=== PATIENT | female | born 1935 | race Caucasian/White ===

== ENCOUNTER 2017-10-04 18:06 | Emergency (ER) | payer MEDICARE, OTHER, SELFPAY ==
[2017-10-04 18:07] VITALS: BP 152/75; PULSE 91; RESP 16; TEMP 36.9; O2SAT 99; BMI 24.3
--- NOTE | 2017-10-04 18:25 | EKG12_ITS ---
Test Reason : FATIGUE Blood Pressure : / mmHG Vent. Rate : 072 BPM Atrial Rate : 277 BPM P-R Int : 000 ms QRS Dur : 168 ms QT Int : 470 ms P-R-T Axes : 000 -85 085 degrees QTc Int : 514 ms Ventricular-paced rhythm Abnormal ECG Confirmed by MALATHI JACOBO, JOEY ([id number]), slot editor BOBO MORA ([id number] on 10/07/2017 1:20:05 PM Referred By: [place] Confirmed By:JOEY SERVIN MD
--- NOTE | 2017-10-04 18:31 | ED.VISSUMM ---
- ER Visit Summary Date of Service: 10/04/17 Chief Complaint: Fluid retention History of Present Illness: The patient is a 81 F who presents with complaint of feet and ankles being swollen for the past week. She states she normally does get swelling but resolves in the morning after she elevates her feet. This has not been happening in the last week or so. She denies pain. She has a pacemaker that she says is secondary to atrial fibrillation. She believes she had an echocardiogram with her marine equipment research engineer not too long ago, but her marine equipment research engineer at [facility]. She is on Lasix chronically but does not know if this is because of congestive heart failure. Physical Examination: Blood pressure is 152/75, temperature 98.5, heart rate 91, respiratory rate 16, pulse ox 99% on room air. Patient sitting upright in bed no acute distress. She is alert and talkative. Head neck examination unremarkable. Heart is regular rate and rhythm. Lung sounds are clear. Abdomen is soft nontender. Lower external examination was 3+ edema in the right lower extremity, 2+ in the left lower extremity. Strong distal pulses are noted throughout. Test Results: EKG is paced at 72. Two-view chest x-ray shows COPD changes. Stable cardiomegaly is noted. CBC and chemistry studies are normal. Troponin is less than 0.015. BNP is 247. INR is supratherapeutic at 3.7. Venous ultrasound of the right leg is obtained secondary to recent surgery on this leg. There is no evidence of DVT. There is a cystic structure behind the right knee measuring 5 cm in diameter. Emergency Department Course and Treatment: On repeat evaluation patient is resting comfortably. Patient's test results were discussed with her as well as family at bedside. She states that she had been told in the past that she had a Barajas's cyst, but she does not know the size. She may be having more persistent swelling in this leg secondary to enlargement of the cyst. Light compression wrap was placed to the right lower extremity. Patient was advised to hold her Coumadin tonight and contact her doctor's office tomorrow to determine dosing. Treatment Plan: [] Disposition: Discharge Impression: 1. Barajas's cyst right leg 2. Supratherapeutic INR This note was generated with MathZeeation software. It may contain incorrect words, spelling, and punctuation that were not noted in review of the chart prior to signing ED Disposition - Plan for ED Patient: Disposition: Home or Assisted Living Chief Complaint: Fatigue Instructions: ED Cyst Barajas Referrals: Leonardo Wood III, MD [Primary Care Provider] - Additional Instructions: Hold your Warfarin tonight. Call Dr Wood's office tomorrow - your INR tonight is 3.7
[2017-10-04 18:57] LABS: Absolute Lymphocyte Count 1.55 X10^3/ul (0.83-4.51); Basophil% 1.5 % (0-1); Eosinophil# 0.21 X10^3/uL; Eosinophils% 3.2 % (0-5); Hematocrit 40.2 % (37-47); Hemoglobin 13.6 g/dl (12.0-15.0); Lymphocyte # 1.55 X10^3/ul (4.0); Lymphocyte % 23.3 % (19-41); Mean Corp Hgb Conc 33.8 g/gl (32-36); Mean Corpuscular Hgb 31.8 pg (27.0-32.0); Mean Corpuscular Volume 93.9 fL (81-99); Mean Platelet Vol. 9.6 fl (6.2-12.0); Monocyte# 0.77 X10^3/uL; Monocyte% 11.6 % (0-10); Neutrophil # 4.02 X10^3/uL (2.7-7.7); Neutrophil % 60.2 % (47-70); Platelet Count 247 K/mm3 (150-450); RBC Distribution Width CV 13.2 % (11.6-14.6); RBC Distribution Width SD 44.2 fl (35.1-43.9); Red Blood Count 4.28 M/mm3 (4.2-5.4); White Blood Count 6.7 K/mm3 (4.4-11.0)
[2017-10-04 18:59] LABS: POSITIVE COUNT NO; POSITIVE DIFFERENTIAL NO; POSITIVE MORPHOLOGY NO
--- NOTE | 2017-10-04 19:00 | RAD_ITS ---
STUDY: X-RAY CHEST REASON FOR EXAM: Female, 81 years old. Fatigue and fluid retention for several weeks. This has worsened over the past week. TECHNIQUE: PA and lateral views of the chest. COMPARISON: July 29, 2016. FINDINGS: Telemetry wires overlie the chest. There is hyperinflation of the lungs consistent with chronic obstructive lung disease (COPD). There is no new mass or infiltrate. There is no demonstrated pleural abnormality. There is mild cardiac enlargement. Stable cardiac pacemaker. Normal mediastinum and doreen. Normal visualized pulmonary arteries. There is atherosclerotic calcification of the aortic arch with tortuosity. There is demineralization of the osseous structures. There is degenerative osteoarthritis of the bilateral shoulders. There is no demonstrated abnormality of the visualized soft tissue structures of the upper abdomen. RAD/Chest PA and Lateral IMPRESSION: 1. COPD without acute pulmonary disease. 2. Stable cardiomegaly with cardiac pacemaker. Electronically Signed: Percy Shin DO at 19:17 EDT Tel [phone], Service support ,
--- NOTE | 2017-10-04 19:09 | US_ITS ---
STUDY: VENOUS DOPPLER ULTRASOUND - RIGHT LOWER EXTREMITY REASON FOR EXAM: Female, 81 years old. Right leg swelling TECHNIQUE: Ultrasound evaluation of the deep vein system to include haynes-scale imaging and compression was performed. Haynes-scale imaging and Doppler sonographic evaluation, including duplex spectral analysis and qualitative color flow sonography, was performed. COMPARISON: None. FINDINGS: Common Femoral Vein: Normal compression, spontaneity and augmentation. Normal color Doppler. Common Femoral Vein/Greater Saphenous Junction: Normal compression, spontaneity and augmentation. Normal color Doppler. Deep Femoral Vein: Normal compression, spontaneity and augmentation. Normal color Doppler. Femoral Proximal: Normal compression, spontaneity and augmentation. Normal color Doppler. Femoral Middle: Normal compression, spontaneity and augmentation. Normal color Doppler. Femoral Distal: Normal compression, spontaneity and augmentation. Normal color Doppler. Popliteal Vein: Normal compression, spontaneity and augmentation. Normal color Doppler. Posterior Tibial Vein: Normal compression, spontaneity and augmentation. Normal color Doppler. Peroneal Vein: Normal compression, spontaneity and augmentation. Normal color Doppler. There is a 5.0 x 4.3 x 1.3 cm right popliteal fossa cyst. US/Venous Duplex Imag/Limited/Uni IMPRESSION: Normal venous Doppler ultrasound of the right lower extremity. 5.0 x 4.3 x 1.3 cm right popliteal fossa cyst. Electronically Signed: Derrick Taylor, at 20:03 EDT Tel , Service support ,
[2017-10-04 19:14] LABS: Anion Gap 8 (5-15); BUN 16 mg/dL (7-18); BUN/Creat Ratio 17.8 RATIO (10-20); Calcium,Total 9.1 mg/dL (8.5-10.1); Chloride 101 mmol/L (98-107); EST Glomerular Filtration Rate 64 mL/min (>60); Est Glom Filt Rate - Afr Amer 77 mL/min (>60); Estimated Creatinine Clearance 44.11 ml/min; Glucose 97 mg/dL (74-106); Potassium 4.1 mmol/L (3.5-5.1); Sodium Level 136 mmol/L (136-145)
[2017-10-04 19:26] LABS: BNP,B-Type NATRIURETIC PEPTIDE 247.4 pg/mL (0-100)
[2017-10-04 19:31] LABS: Prothrombin Time (Protime)PT. 36.7 SECONDS (11.7-14.9)
[2017-10-04 19:34] LABS: International Normalized Ratio 3.7
--- NOTE | 2017-10-04 19:34 | ED.RN ---
INR 3.7- notified Dr. Sarmiento
--- NOTE | 2017-10-04 20:12 | ED.DEP ---
ED Disposition - Plan for ED Patient: Disposition: Home or Assisted Living Chief Complaint: Fatigue Instructions: ED Cyst Barajas Referrals: Leonardo Wood III, MD [Primary Care Provider] - Additional Instructions: Hold your Warfarin tonight. Call Dr Wood's office tomorrow - your INR tonight is 3.7
[2017-10-04 20:19] VITALS: BP 151/73; PULSE 72; RESP 22; O2SAT 98
== END 2017-10-04 20:29 | disposition home or self-care (01) ==
PROVIDERS: Emergency Provider Emergency Medicine; Family Provider Family Medicine; PCP Family Medicine
DX: M71.21 Synovial cyst of popliteal space [Baker], right knee (principal); I48.91 Unspecified atrial fibrillation; J44.9 Chronic obstructive pulmonary disease, unspecified; K21.9 Gastro-esophageal reflux disease without esophagitis; I71.2 Thoracic aortic aneurysm, without rupture; Z95.0 Presence of cardiac pacemaker; Z72.0 Tobacco use; Z79.51 Long term (current) use of inhaled steroids; Z79.01 Long term (current) use of anticoagulants; Z79.899 Other long term (current) drug therapy
CPT/HCPCS: 71046; 80048; 83880; 84484; 85025; 85610; 93005; 93971; 99284; A4216

== ENCOUNTER 2017-10-12 09:43 | Outpatient (RCR) | payer MEDICARE, OTHER, SELFPAY | END 2017-11-11 23:59 | LOC: WC 09:43 | PROVIDERS: Family Provider Family Medicine; PCP Family Medicine; Visit Provider Nurse Practitioner | DX: Z09 Encounter for follow-up examination after completed treatment for conditions other than malignant neoplasm (principal) ==

== ENCOUNTER → 2018-05-08 16:34 | Outpatient (CLI) | payer MEDICARE, OTHER, SELFPAY ==
[2018-05-08 16:56] LABS: International Normalized Ratio 2.9; Prothrombin Time (Protime)PT. 30.2 SECONDS (11.7-14.9)
== END ==
PROVIDERS: Family Provider Family Medicine; PCP Family Medicine; Referring Provider Family Medicine; Visit Provider Family Medicine
DX: I48.91 Unspecified atrial fibrillation (principal)
CPT/HCPCS: 85610

== ENCOUNTER → 2018-06-19 | Outpatient (CLI) | payer MEDICARE, OTHER, SELFPAY ==
[2018-06-19 15:24] LABS: International Normalized Ratio 1.9; Prothrombin Time (Protime)PT. 22.1 SECONDS (11.7-14.9)
== END | disposition home or self-care (01) ==
LOC: LABSPEC 14:49
PROVIDERS: Family Provider Family Medicine; PCP Family Medicine; Referring Provider Family Medicine; Visit Provider Family Medicine
DX: I48.91 Unspecified atrial fibrillation (principal)
CPT/HCPCS: 85610

== ENCOUNTER → 2018-07-04 | Outpatient (CLI) | payer MEDICARE, OTHER, SELFPAY ==
[2018-07-04 16:26] LABS: International Normalized Ratio 2.3; Prothrombin Time (Protime)PT. 25.1 SECONDS (11.7-14.9)
== END | disposition home or self-care (01) ==
LOC: LABSPEC 15:59
PROVIDERS: Family Provider Family Medicine; PCP Family Medicine; Referring Provider Family Medicine; Visit Provider Family Medicine
DX: I48.91 Unspecified atrial fibrillation (principal)
CPT/HCPCS: 85610

== ENCOUNTER → 2018-07-19 13:31 | Outpatient (CLI) | payer MEDICARE, OTHER, SELFPAY ==
[2018-07-19 14:10] LABS: International Normalized Ratio 2.1; Prothrombin Time (Protime)PT. 23.1 SECONDS (11.7-14.9)
== END ==
PROVIDERS: Family Provider Family Medicine; PCP Family Medicine; Referring Provider Family Medicine; Visit Provider Family Medicine
DX: I48.91 Unspecified atrial fibrillation (principal)
CPT/HCPCS: 85610

== ENCOUNTER → 2018-09-07 | Outpatient (CLI) | payer MEDICARE, OTHER, SELFPAY ==
[2018-09-07 17:37] LABS: International Normalized Ratio 2.5; Prothrombin Time (Protime)PT. 26.6 SECONDS (11.7-14.9)
== END | disposition home or self-care (01) ==
LOC: LABSPEC 17:09
PROVIDERS: Family Provider Family Medicine; PCP Family Medicine; Referring Provider Nurse Practitioner Family; Visit Provider Nurse Practitioner Family
DX: I48.91 Unspecified atrial fibrillation (principal)
CPT/HCPCS: 85610

== ENCOUNTER 2018-11-23 13:56 | Emergency (ER) | payer MEDICARE, OTHER, SELFPAY ==
[2018-11-23 13:57] VITALS: BP 145/81; PULSE 97; RESP 16; TEMP 36.6; O2SAT 97; BMI 23.6
--- NOTE | 2018-11-23 14:27 | ED.VISSUMM ---
- ER Visit Summary Date of Service: 11/23/18 Chief Complaint: Suspected vaginal bleeding History of Present Illness: The patient is a 83 F currently on Coumadin for A. fib she also has a vascular stent in the right leg. Known COPD and pacemaker. Patient states today she noticed she was having bleeding she thinks is vaginal but is not 100% sure so that could potentially be rectal bleeding. She also believes that there was a skin blister and that may be what was causing the bleeding. The bleeding is since resolved. She denies any dysuria or hematuria. He denies any black or tarry stools recently. She never had any like this before. She denies being lightheaded or dizzy. Physical Examination: Older female no acute distress. Vital signs are stable afebrile. She is sitting upright in bed. HEENT exam unremarkable. Neck nontender. Lungs clear to auscultation. Heart regular rhythm. Abdomen is soft and nontender. She is moving all 4 extremities. There are neurovascular intact. Neurologically she is awake and alert with no focal motor or sensory deficits. Test Results: CBC shows no acute abnormality. White count 6. Hemoglobin 15. Chemistries unremarkable normal creatinine and gap. She is on Coumadin her INR is 2.7. Emergency Department Course and Treatment: A pelvic exam will be done with female nurse present in room. Showed no signs of blood in the vaginal vault or acute bleeding. I then did a rectal exam again no signs of black stool or blood in any way. There is a skin lesion that appears to be a small blood blister but currently there is no bleeding on the skin. There is absolutely no active bleeding. Treatment Plan: Follow-up with her primary care physician to try to find the source of where the bleeding was coming from. Return if worse. Disposition: discharge Impression: Acute bleeding of uncertain etiology Anticoagulated on Coumadin secondary to known A. fib This note was generated with Geofeedia dictation software. It may contain incorrect words, spelling, and punctuation that were not noted in review of the chart prior to signing ED Disposition - Plan for ED Patient: Referrals: Leonardo Wood III, MD [Primary Care Provider] -
[2018-11-23 15:04] LABS: Hematocrit 45.4 % (37-47); Hemoglobin 15.1 g/dL (12.0-15.0); Mean Corp Hgb Conc 33.3 g/dL (32-36); Mean Corpuscular Hgb 31.8 pg (27.0-32.0); Mean Corpuscular Volume 95.6 fL (81-99); Mean Platelet Vol. 9.7 fl (6.2-12.0); Platelet Count 172 K/mm3 (150-450); RBC Distribution Width CV 13.9 % (11.6-14.6); RBC Distribution Width SD 48.9 fl (35.1-43.9); Red Blood Count 4.75 M/mm3 (4.2-5.4); White Blood Count 6.5 K/mm3 (4.4-11.0)
[2018-11-23 15:14] LABS: International Normalized Ratio 2.7; Prothrombin Time (Protime)PT. 28.6 SECONDS (11.7-14.9)
[2018-11-23 15:18] LABS: Anion Gap 4 (5-15); BUN 20 mg/dL (7-18); BUN/Creat Ratio 25.2 RATIO (10-20); Calcium,Total 8.8 mg/dL (8.5-10.1); Chloride 105 mmol/L (98-107); Creatinine, Serum 0.79 mg/dL (0.55-1.02); EST Glomerular Filtration Rate 73 mL/min (>60); Est Glom Filt Rate - Afr Amer 89 mL/min (>60); Estimated Creatinine Clearance 38.36 ml/min; Glucose 94 mg/dL (74-106); Sodium Level 139 mmol/L (136-145)
--- NOTE | 2018-11-23 15:54 | ED.DEP ---
ED Disposition - Plan for ED Patient: Disposition: Home or Assisted Living Referrals: Leonardo Wood III, MD [Primary Care Provider] - As soon as possible Additional Instructions: Continue your current medications. Follow-up with primary care physician. Currently at this time there is no vaginal blood or bleeding. There is also no rectal blood or bleeding. And if the skin blood blister was bleeding it is since stopped and there is no active bleeding or dried blood on her skin at this time. Return to the ER if you began having heavy bleeding again.
== END 2018-11-23 16:09 | disposition home or self-care (01) ==
PROVIDERS: Emergency Provider Emergency Medicine; Family Provider Family Medicine; PCP Family Medicine
DX: R58 Hemorrhage, not elsewhere classified (principal); I48.91 Unspecified atrial fibrillation; J44.9 Chronic obstructive pulmonary disease, unspecified; Z95.0 Presence of cardiac pacemaker; Z79.01 Long term (current) use of anticoagulants; Z72.0 Tobacco use
CPT/HCPCS: 80048; 85027; 85610; 99283; A4216

== ENCOUNTER → 2018-11-28 | Outpatient (CLI) | payer MEDICARE, OTHER, SELFPAY ==
[2018-11-23 13:57] VITALS: BMI 23.6
[2018-11-28 17:00] LABS: International Normalized Ratio 2.5; Prothrombin Time (Protime)PT. 26.6 SECONDS (11.7-14.9)
== END | disposition home or self-care (01) ==
LOC: LABSPEC 16:34
PROVIDERS: Family Provider Family Medicine; PCP Family Medicine; Referring Provider Family Medicine; Visit Provider Family Medicine
DX: I48.91 Unspecified atrial fibrillation (principal)
CPT/HCPCS: 85610

== ENCOUNTER → 2019-03-12 16:05 | Outpatient (CLI) | payer MEDICARE, OTHER, SELFPAY ==
[2019-03-12 17:16] LABS: International Normalized Ratio 2.7
== END ==
PROVIDERS: Family Provider Family Medicine; PCP Family Medicine; Referring Provider Family Medicine; Visit Provider Family Medicine
DX: I48.20 Chronic atrial fibrillation, unspecified (principal)
CPT/HCPCS: 85610

== ENCOUNTER → 2019-10-15 | Outpatient (CLI) | payer MEDICARE, OTHER, SELFPAY ==
[2019-10-15 12:35] LABS: International Normalized Ratio 1.6; Prothrombin Time (Protime)PT. 18.8 SECONDS (11.7-14.9)
== END | disposition home or self-care (01) ==
LOC: LABSPEC 12:09
PROVIDERS: PCP Family Medicine; Referring Provider Family Medicine; Visit Provider Family Medicine
DX: I48.91 Unspecified atrial fibrillation (principal)
CPT/HCPCS: 85610

== ENCOUNTER 2019-10-20 12:50 | Inpatient (IN) | payer MEDICARE, OTHER, SELFPAY ==
[2019-10-20] VITALS (11 sets, daily range): BP systolic 128–156; BP diastolic 57–84; PULSE 72–90; RESP 16–20; TEMP 36.3–36.7; O2SAT 93–98; BMI 23.1; BMI 23.4; BMI 23.5
--- NOTE | 2019-10-20 12:58 | ED.VIS.GEN ---
History of Present Illness Chief Complaint: Dizziness Informant: Patient Narrative: 3-year-old female presenting for evaluation after she had a headache that started at 2 AM in the morning. She states that she took Tylenol and laid down and it took a while for her headache to improve enough that she could go back to sleep however she did wake up with a headache. She states at that time she started to feel dizzy and nauseous. She describes it as lightheadedness not vertiginous in nature. She states then when she started to eat her left jaw started to hurt. 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 She then went to watch television and stated that she felt very confused, but knew she was confused. She was having difficulty operating the television. She did not have any episodes of syncope. She denies chest pain or shortness of breath. She is not had a fever. She is on Coumadin but states she is not had any black or bloody stools. Denies urinary symptoms. Past Medical History - Allergies and Home Meds Allergies/Adverse Reactions: Allergies amoxicillin Allergy (Verified 10/20/19 13:19) Itching lisinopril Allergy (Verified 10/20/19 13:19) Unknown ON LIST FROM PCP Penicillins [PCN] Allergy (Verified 10/20/19 13:19) Unknown ON LIST FROM PCP Sulfa (Sulfonamide Antibiotics) Allergy (Verified 10/20/19 13:19) Unknown Prior records reviewed: Yes Surgical History: appendectomy, pacemaker implantation Smoking Status: Never smoker - Family History Maternal Family History: Reports: No pertinent history Review of Systems General: Denies: Chills, Fever Eyes: Denies: Visual changes - bilaterally, Diplopia ENT: Reports: - - Left sided jaw pain Cardiovascular: Denies: Chest pain Respiratory: Denies: Dyspnea, Cough Gastrointestinal: Reports: Nausea. Denies: Abdominal pain, Melena, Hematochezia Musculoskeletal: Denies: Myalgias, Arthralgias Skin: Denies: Rash Neurological: Reports: Headache, Weakness Psych: Denies: Depression, Anxiety Hematologic: Denies: Easy bruising, Easy bleeding Physical Exam Vital Signs/Narrative: Vital Signs Temp Pulse Resp BP Pulse Ox 10/20/19 12:51 97.6 F L 90 16 146/84 H 98 Inital Vital Signs reviewed: Yes General: Well developed, No Acute Distress Eyes: Perrl, EOMI. Negative for: Pale conjunctiva ENT: Moist mucous membranes Cardiovascular: Regular rate, Regular rhythm Respiratory: No distress, CTA bilaterally Abdomen: Soft, Nondistended Back: Nontender Extremities: Nontender, No edema Skin: Normal color. Negative for: Pallor Neurological: Alert, Oriented x3, Cranial nerves II-XII grossly intact, - - NIH 0 Psychological: Normal affect Diagnostic/Tx/Re-eval Clinical Impression(s) from Imaging Studies Brain CT 10/20/19 13:05 IMPRESSION: Chronic involutional changes of the brain. No acute intracranial process. Electronically Signed: José Luis Enciso MD at 14:29 EDT Tel , Service support , Chest X-Ray 10/20/19 13:06 IMPRESSION: Enlargement of the cardiac silhouette. No active pulmonary disease. Electronically Signed: José Luis Enciso MD at 14:14 EDT Tel , Service support , Laboratory Data 10/20/19 10/20/19 10/20/19 13:02 13:02 13:02 WBC 8.0 RBC 4.93 Hgb 15.7 H Hct 47.9 H MCV 97.2 MCH 31.8 MCHC 32.8 RDW Std Deviation 47.4 H RDW Coeff of Kasia 13.3 Plt Count 208 MPV 9.9 Immature Gran % (Auto) 0.400 Neut % (Auto) 64.4 Lymph % (Auto) 19.3 Wharton % (Auto) 9.7 Eos % (Auto) 4.5 Baso % (Auto) 1.7 H Absolute Neuts (auto) 5.2 Absolute Lymphs (auto) 1.55 Nucleated RBC % 0 PT 16.6 H INR 1.4 Sodium 139 Potassium 3.7 Chloride 103 Carbon Dioxide 32.0 Anion Gap 4 L BUN 25 H Creatinine 0.99 Estim Creat Clear Calc 38.74 Est GFR (MDRD) Af Amer 68 Est GFR (MDRD) Non-Af 57 L BUN/Creatinine Ratio 25.2 H Glucose 79 Calcium 9.7 Total Bilirubin 1.20 H AST 18 ALT 19 Alkaline Phosphatase 88 Troponin I 0.120 H Total Protein 7.9 Albumin 4.1 Globulin 3.8 Albumin/Globulin Ratio 1.1 TSH Urine Color Urine Clarity Urine pH Ur Specific [place] Urine Protein Urine Glucose (UA) Urine Ketones Urine Occult Blood Urine Nitrite Urine Bilirubin Urine Urobilinogen Ur Leukocyte Esterase Urine RBC Urine WBC Ur Squamous Epith Cells Urine Bacteria Urine Mucus 10/20/19 10/20/19 16:05 16:10 WBC RBC Hgb Hct MCV MCH MCHC RDW Std Deviation RDW Coeff of Kasia Plt Count MPV Immature Gran % (Auto) Neut % (Auto) Lymph % (Auto) Wharton % (Auto) Eos % (Auto) Baso % (Auto) Absolute Neuts (auto) Absolute Lymphs (auto) Nucleated RBC % PT INR Sodium Potassium Chloride Carbon Dioxide Anion Gap BUN Creatinine Estim Creat Clear Calc Est GFR (MDRD) Af Amer Est GFR (MDRD) Non-Af BUN/Creatinine Ratio Glucose Calcium Total Bilirubin AST ALT Alkaline Phosphatase Troponin I 0.114 H Total Protein Albumin Globulin Albumin/Globulin Ratio TSH 2.82 Urine Color Yellow Urine Clarity Clear Urine pH 6.0 Ur Specific [place] 1.015 Urine Protein Negative Urine Glucose (UA) Normal Urine Ketones 5 H Urine Occult Blood Negative Urine Nitrite Negative Urine Bilirubin Negative Urine Urobilinogen Normal Ur Leukocyte Esterase Negative Urine RBC 0-5 SEEN Urine WBC 0 SEEN Ur Squamous Epith Cells 0-5 SEEN Urine Bacteria 0 SEEN Urine Mucus 0 SEEN - Medical Decision Making 83-year-old female presenting for evaluation after having jaw pain generalized weakness and confusion earlier today. She states this started after getting a headache at night at about 2 AM. Patient has not had a fever. She denies having any chest pain. She states she does get episodes of weakness. On examination she does not have any neurologic deficits. Her lungs are clear. Her EKG is paced rhythm. Chest x-ray is negative. Blood work is normal with exception of some slight dehydration and an elevated troponin as documented above. I did recheck a delta troponin and it had gone down slightly. After I did the delta troponin she had another episode of which she felt weak but she denied any chest pain or shortness of breath with it. Given her indeterminant troponin and her continued symptoms I spoke with the hospitalist about admission for cardiac evaluation. He was amenable to this. Patient's INR was found to be subtherapeutic because she does started this on Tuesday after a skin cancer on her scalp was removed. This appears to be healing well. I have low clinical suspicion for pulmonary embolism. Patient will be admitted for further evaluation Impression: 1. Headache 2. Weakness 3. Indeterminate troponin 4. Subtherapeutic INR ED Disposition - Plan for ED Patient: Disposition: Acute Care [facility]
--- NOTE | 2019-10-20 13:05 | CT_ITS ---
STUDY: CT BRAIN WITHOUT CONTRAST REASON FOR EXAM: Female, 83 years old. Headache, weakness and confusion. RADIATION DOSAGE (If Supplied By Facility): CTDIvol = ( 44.99 ) mGy, DLP = ( 779.24 ) mGycm TECHNIQUE: Transaxial CT imaging of the brain was performed without administration of intravenous contrast material. Individualized dose optimization techniques were used for this CT. COMPARISON: 07/30/2016. FINDINGS: Normal soft tissue structures. Normal calvarium. There is mild cerebral atrophy with widening of the extra-axial spaces and ventricular dilatation. There are areas of decreased attenuation within the white matter tracts of the supratentorial brain, consistent with microvascular disease changes. Normal basal ganglia and thalami. Normal brainstem. 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 There is no intracranial hemorrhage. There are no findings of an acute ischemic infarction. Calcifications of the cavernous internal carotid arteries bilaterally. Mild mucosal thickening of the left maxillary and sphenoid sinuses. CT/Brain/Head without Contrast IMPRESSION: Chronic involutional changes of the brain. No acute intracranial process. Electronically Signed: José Luis Enciso MD at 14:29 EDT Tel , Service support ,
--- NOTE | 2019-10-20 13:06 | EKG12_ITS ---
Test Reason : DIZZINESS Blood Pressure : / mmHG Vent. Rate : 083 BPM Atrial Rate : 300 BPM P-R Int : 000 ms QRS Dur : 156 ms QT Int : 446 ms P-R-T Axes : 084 -80 097 degrees QTc Int : 524 ms Ventricular-paced rhythm Abnormal ECG Confirmed by MALATHI JACOBO, JOEY ([id number]), assistant production editor ANNEL GARCIA ([id number]) on 10/22/2019 9:00:28 AM Referred By: Confirmed By:JOEY SERVIN MD
--- NOTE | 2019-10-20 13:06 | RAD_ITS ---
STUDY: X-RAY CHEST REASON FOR EXAM: Female, 83 years old. Weakness. TECHNIQUE: Single AP portable view of the chest. COMPARISON: 10/04/2017. FINDINGS: There again is dual-chamber left-sided pacemaker in stable position. The lungs are clear and expanded. There is no demonstrated pleural abnormality. The cardiac silhouette remains enlarged. Normal mediastinum and doreen. Normal visualized pulmonary arteries. There is atherosclerotic calcification of the aortic arch with tortuosity. Stable bony structures. There is no demonstrated abnormality of the visualized soft tissue structures of the upper abdomen. RAD/Chest 1 View (Portable) IMPRESSION: Enlargement of the cardiac silhouette. No active pulmonary disease. Electronically Signed: José Luis Enciso MD at 14:14 EDT Tel , Service support ,
[2019-10-20 13:14] LABS: Absolute Lymphocyte Count 1.55 X10^3/uL (0.83-4.51); Absolute Neutrophil Count 5.2 X10^3/uL (2.0-7.7); Basophil# 0.14 X10^3/uL; Basophil% 1.7 % (0-1); Eosinophil# 0.36 X10^3/uL; Eosinophils% 4.5 % (0-5); Hematocrit 47.9 % (37-47); Hemoglobin 15.7 g/dL (12.0-15.0); Lymphocyte # 1.55 X10^3/ul (4.0); Lymphocyte % 19.3 % (19-41); Mean Corp Hgb Conc 32.8 g/dL (32-36); Mean Corpuscular Hgb 31.8 pg (27.0-32.0); Mean Corpuscular Volume 97.2 fL (81-99); Mean Platelet Vol. 9.9 fl (6.2-12.0); Monocyte# 0.78 X10^3/uL; Monocyte% 9.7 % (0-10); NRBC Flagged by Analyzer 0 % (0-5); Neutrophil # 5.17 X10^3/uL (2.7-7.7); Neutrophil % 64.4 % (47-70); Platelet Count 208 K/mm3 (150-450); RBC Distribution Width CV 13.3 % (11.6-14.6); RBC Distribution Width SD 47.4 fl (35.1-43.9); Red Blood Count 4.93 M/mm3 (4.2-5.4)
[2019-10-20] MEDS: Ondansetron 4 MG/2 ML Vial IV (13:18)
[2019-10-20 13:25] LABS: International Normalized Ratio 1.4; Prothrombin Time (Protime)PT. 16.6 SECONDS (11.7-14.9)
[2019-10-20 13:33] LABS: ALB/GLOB Ratio 1.1 RATIO (0.9-2.4); AST(SGOT) 18 U/L (15-37); Alanine Aminotransfer ALT/SGPT 19 U/L (13-56); Albumin, Serum 4.1 g/dL (3.2-5.0); Alkaline Phosphatase 88 U/L (45-117); Anion Gap 4 (5-15); BUN 25 mg/dL (7-18); BUN/Creat Ratio 25.2 RATIO (10-20); Calcium,Total 9.7 mg/dL (8.5-10.1); Chloride 103 mmol/L (98-107); Creatinine, Serum 0.99 mg/dL (0.55-1.02); EST Glomerular Filtration Rate 57 mL/min (>60); Est Glom Filt Rate - Afr Amer 68 mL/min (>60); Estimated Creatinine Clearance 38.74 ml/min; Globulin 3.8 g/dL (2.2-4.2); Glucose 79 mg/dL (74-106); Potassium 3.7 mmol/L (3.5-5.1); Protein, Total 7.9 g/dL (6.4-8.2); Sodium Level 139 mmol/L (136-145)
--- NOTE | 2019-10-20 14:50 | EKG12_ITS ---
Test Reason : REPEAT Blood Pressure : / mmHG Vent. Rate : 071 BPM Atrial Rate : 284 BPM P-R Int : 000 ms QRS Dur : 168 ms QT Int : 486 ms P-R-T Axes : 000 -86 091 degrees QTc Int : 528 ms Ventricular-paced rhythm Abnormal ECG Confirmed by MALATHI JACOBO, JOEY ([id number]), content editor BOBO MORA ([id number] on 10/22/2019 1:30:51 PM Referred By: ELINOR TOLEDO Confirmed By:JOEY SERVIN MD
[2019-10-20] MEDS: Aspirin 325 MG Tablet PO (15:37)
[2019-10-20 16:10] LABS: Bacteria 0 SEEN /hpf (None Seen); Mucous, Urine 0 SEEN /hpf (<or=2+); White Blood Cells 0 SEEN /hpf (0-5)
[2019-10-20 16:22] LABS: Color, Urine Yellow (Yellow); Glucose, Dipstick Normal (Normal); Ketone-Dipstick 5 mg/dl (Negative); Leukocyte Esterase-Dipstick Negative /ul (Negative); Nitrite-Dipstick Negative (Negative); Occult Blood-Urine Negative /ul (Negative); Protein-Dipstick Negative (Negative); Specific Gravity, Urine 1.015 (1.002-1.030); Urine Bilirubin Dipstick Negative (Negative); Urine Clarity Clear (Clear); Urine Urobilinogen Normal (Normal)
[2019-10-20 16:33] LABS: Red Blood Cells-Urine 0-5 SEEN /hpf (0-5); Squamous Epithelial Cells - UA 0-5 SEEN /hpf (5-10)
[2019-10-20 16:40] LABS: Thyroid Stim Hormone (TSH) 2.82 uIU/mL (0.358-3.74)
--- NOTE | 2019-10-20 18:17 | HP.PCM_ITS ---
History of Present Illness Date of Admission: 10/20/19 Chief Complaint: confusion The patient is a 83 year old F who awoke at 2 AM with a left-sided headache. Went and got up and had some milk. Headache did get better and she went back to sleep. Woke up around 8 AM and was feeling well. During the day, patient started having some left jaw pain while she was eating. Took a break and then resumed eating again and did not have any further left jaw pain. Left-sided headache came and went. Patient was going to watch TV and just was not able to knowingly use the remote control. She states that this is not new TV nor a new remote control. She has never had symptoms like this before. So she presented to the emergency room. In the emergency room, she underwent a head CT that showed no acute process but did have slightly elevated troponins of 0.12 and 0.114. She denies any chest pain. She is not having further headache nor any jaw pain at this time. 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 [] Past Medical History Past Medical History (Chronic Problems): Chronic Problems Tobacco abuse (Chronic) Hypothyroidism (Chronic) A-fib (Chronic) Allergies amoxicillin Allergy (Verified 10/20/19 13:19) Itching lisinopril Allergy (Verified 10/20/19 13:19) Unknown ON LIST FROM PCP Penicillins [PCN] Allergy (Verified 10/20/19 13:19) Unknown ON LIST FROM PCP Sulfa (Sulfonamide Antibiotics) Allergy (Verified 10/20/19 13:19) Unknown Home Medications: Ambulatory Orders Medication Instructions Recorded Ascorbic Acid [Vitamin C] 1,000 mg PO BID 03/31/15 Cholecalciferol (VIT D3) [Vitamin 1,000 unit PO DAILY 03/31/15 D3] Furosemide [Lasix] 20 mg PO DAILY 03/31/15 Levothyroxine [Synthroid] 25 mcg PO DAILY 03/31/15 Metoprolol(XL)Succ [Toprol Xl 50 mg PO QHS 03/31/15 (Beta Ramin)] Potassium Chloride [K-Dur] 20 meq PO DAILY 03/31/15 Ubidecarenone [Q-Sorb Co Q-10] 100 mg PO DAILY 03/31/15 Vitamin E 400 units PO DAILY 03/31/15 Warfarin [Coumadin] 2 mg PO ESCOBAR 03/31/15 ALPRAZolam [Xanax] 0.25 mg PO Q6H PRN PRN 07/29/16 Albuterol IH (ProAir) [Proair Hfa] 1 - 2 puff INHALATION Q6H PRN PRN 07/29/16 Magnesium Gluconate 1,500 mg PO BID 07/29/16 Warfarin [Coumadin] 3 mg PO [id number] 07/29/16 Acetaminophen [Tylenol Tablet] 650 mg PO Q6H PRN PRN #0 tablet 07/30/16 Meclizine HCl [Antivert] 25 mg PO TID PRN PRN #20 tablet 07/30/16 Doxycycline Hyclate 100 mg PO BID 10/20/19 Fluticasone/Umeclidin/Vilanter 1 ea IH DAILY 10/20/19 [Trelegy Ellipta 100-62.5-25] Omeprazole [Prilosec] 20 mg PO DAILY PRN 10/20/19 Surgical History: appendectomy, pacemaker implantation Smoking Status: Light Smoker (<10/day) Tobacco Use: Cigarettes Alcohol: Occasional - 2 drinks per day - *Family History Maternal History Items: No pertinent history, - - No stroke Review of Systems Constitutional: Reports: - - She denies any anosmia, dysgeusia. No known contacts to anyone with COVID-19.. Denies: Anorexia, Chills, Fever, Malaise, Weakness Eyes: Reports: Blurred vision, Double vision HEENT: Denies: Head Aches, Sinus Congestion, Sinus Drainage Cardiovascular: Denies: Chest Pain, Palpitations Respiratory: Denies: Cough, Shortness of breath at rest, Sputum production Gastrointestinal: Denies: Abdominal Pain, Nausea, Vomiting Genitourinary: Denies: Dysuria Musculoskeletal: Denies: Joint Pain, Joint Tenderness Skin: Reports: - - Did have a basal cell carcinoma removed from her scalp this past Tuesday. Denies: Rash, Wounds Neurological: Reports: Confusion, Headaches. Denies: Balance problems, Blurred vision, Double vision, Change in Speech, Slurred speech, Difficulty swallowing, Focal weakness Comment: All review of systems were negative except as mentioned above in the history of present illness and the other review of systems. VTE Information - Inpt Only VTE Present on Admission: No VTE Mechan Device Prophylaxis: None VTE Pharm Prophylaxis ordered?: Yes - Physical Exam Vitals/I&O's: Vital Signs Temp Pulse Resp BP Pulse Ox 36.4 C L 73 18 152/71 H 97 10/20/19 12:51 10/20/19 17:14 10/20/19 17:14 10/20/19 17:14 10/20/19 17:14 Oxygen Delivery Method Room Air Weight: 63 kg Body Mass Index (BMI) 23.1 Finger Stick Blood Glucose 84 Intake and Output for Last 24 Hours 10/18/19 10/19/19 10/20/19 23:59 23:59 23:59 Intake Total 1000 / 1000 Balance 1000 / 1000 General: Alert, Cooperative, No apparent distress, Well developed, Well nourishe d HEENT: Atraumatic, PERRLA, EOMI, Normocephalic, - - No temporal tenderness. No palpable temporal artery. Did have some mild bilateral temporal mandibular joint tenderness Oral: Moist Mucosa, No Gingival or Mucosal Lesions/ Ulcerations Neck: Negative Carotid Bruits, No Nodes, Thyroid Normal Size and Texture Lungs: Clear to auscultation, Normal air movement, No rhonchi, No wheeze, No rales Cardiovascular: Regular rate, Regular Rhythm, Normal S1, Normal S2, No murmurs Abdomen: Bowel Sounds Present, Soft, Non Tender, Non-Distended, No Hepato- splenomegaly Extremities: No edema, No Calf Tenderness Skin: No rashes, No breakdown Musculoskeletal: No Tenderness to Palpation of Joints or Extremities, No Muscle Wasting Neurological: Cranial nerves II-XII grossly intact, Motor Exam 5/5 strength throughout, Coordination normal Psych/Mental Status: Normal Affect, Appropriate Laboratory Results 10/20/19 13:02: WBC 8.0, RBC 4.93, Hgb 15.7 H, Hct 47.9 H, MCV 97.2, MCH 31.8, MCHC 32.8, RDW Std Deviation 47.4 H, RDW Coeff of Kasia 13.3, Plt Count 208, MPV 9.9, Immature Gran % (Auto) 0.400, Neut % (Auto) 64.4, Lymph % (Auto) 19.3, [place] % (Auto) 9.7, Eos % (Auto) 4.5, Baso % (Auto) 1.7 H, Absolute Neuts (auto) 5.2, Absolute Lymphs (auto) 1.55, Nucleated RBC % 0 10/20/19 13:02: Sodium 139, Potassium 3.7, Chloride 103, Carbon Dioxide 32.0, Anion Gap 4 L, BUN 25 H, Creatinine 0.99, Estim Creat Clear Calc 38.74, Est GFR (MDRD) Af Amer 68, Est GFR (MDRD) Non-Af 57 L, BUN/Creatinine Ratio 25.2 H, Glucose 79, Calcium 9.7, Total Bilirubin 1.20 H, AST 18, ALT 19, Alkaline Phosphatase 88, Troponin I 0.120 H, Total Protein 7.9, Albumin 4.1, Globulin 3.8, Albumin/Globulin Ratio 1.1 10/20/19 13:02: PT 16.6 H, INR 1.4 10/20/19 16:05: Urine Color Yellow, Urine Clarity Clear, Urine pH 6.0, Ur Specific [place] 1.015, Urine Protein Negative, Urine Glucose (UA) Normal, Urine Ketones 5 H, Urine Occult Blood Negative, Urine Nitrite Negative, Urine Bilirub in Negative, Urine Urobilinogen Normal, Ur Leukocyte Esterase Negative, Urine RBC 0-5 SEEN, Urine WBC 0 SEEN, Ur Squamous Epith Cells 0-5 SEEN, Urine Bacteria 0 SEEN, Urine Mucus 0 SEEN 10/20/19 16:10: Troponin I 0.114 H, TSH 2.82 EKG reviewed and was paced and no other acute changes were noted. Clinical Impression(s) from Imaging Studies Brain CT 10/20/19 13:05 IMPRESSION: Chronic involutional changes of the brain. No acute intracranial process. Electronically Signed: José Luis Enciso MD at 14:29 EDT Tel , Service support , Chest X-Ray 10/20/19 13:06 IMPRESSION: Enlargement of the cardiac silhouette. No active pulmonary disease. Electronically Signed: José Luis Enciso MD at 14:14 EDT Tel , Service support , Assessment/Plan All Active Problems GERD (gastroesophageal reflux disease) (Acute) Vertigo (Acute) 1. Headache: Possibilities include migraine versus giant cell arteritis. No further imaging at this time as patient has pacemaker and MRI is excluded. Patient's pacemaker was placed in 1999 and so would not be MRI compatible. The headache is intermittent but I think it is worthwhile checking a and ESR to rule out giant cell arteritis. If elevated (greater than 40) then would initiate the patient on 60 mg of prednisone. 2. Confusion: This is subjective. Patient stated that she was not able to operate the remote control and stated that when I talked about an echocardiogram with her that she did not understand what that meant. Etiology is unclear but feel that we should evaluate the patient for stroke. The work-up will be limited as patient is unable to have an MRI. Check an echocardiogram, neurology checks and bedside swallow evaluation. Will continue with aspirin. Patient did receive aspirin in the emergency room. After the rest of the neurology work-up has been completed, would recommend SOC tele-neurology consults unless another clear indication is identified for her confusion. Other possibilities could be just some low-grade vertigo as patient does have a history of this and has been hospitalized for that in 2017. Could also be related with polypharmacy and alcohol consumption. Patient states that she did drink 2 drinks yesterday and she is also on lorazepam. Possible that the combination of these medications could have led to some of this confusion as well. I would not discontinue the lorazepam as I do not wish to precipitate any current withdrawal symptoms though she does take a low-dose. 3. Elevated troponins: Patient is asymptomatic. Which is continuous likely troponins and check an echocardiogram. Patient will be on aspirin. Will hold off on cardiology evaluation at this time. 4. History of A. fib: Patient has a pacemaker and is on warfarin. 5. VTE prophylaxis: Moderate risk. Patient's INR is subtherapeutic so we will patient on VTE prophylactic dosing of enoxaparin. If patient has signs or worsening troponin elevations then consider full anticoagulation until her INR is therapeutic. Advanced care planning: Spent an additional 16 minutes discussing with patient about CODE STATUS. Talk to her about what is involved in cardiopulmonary resuscitation, the differences between full code and DNR Comfort Care arrest. Patient is unsure at this time and I told patient that we would leave her at full code and that if any event of cardiac arrest that we would initiate CPR. I told her that she can decide later during this admission or the future but did encourage her to talk further with her family about this. Inpatient E&M: 44497 Init Hosp L3 Procedures: 72143 Advncd Care Plan 30 Min
--- NOTE | 2019-10-20 18:26 | ECHOD_ITS ---
Reason For Study: TIA/CVA Procedure This was a 2D Doppler, Color Flow transthoracic echocardiogram. Exam performed portable in patient room. Left Ventricle Normal LV size. Moderate eccentric left ventricular hypertrophy. Left ventricular systolic function is normal. The estimated ejection fraction is 65 %. Stage 3 diastolic dysfunction. No regional wall motion abnormalities noted. Right Ventricle Normal RV size. ICD or pacer leads identified within the right ventricle. Normal systolic function. Atria The left atrium is severely enlarged. The right atrium is moderately enlarged. ICD or pacer leads identified within the right atrium. Pacer lead with mobile echogenic structure noted likely small thrombus. Bubble contrast study negative for right to left interatrial shunt. Mitral Valve There is mild mitral annular calcification. Mild (1+) eccentric mitral valve insufficiency. Tricuspid Valve Normal tricuspid valve. Mild to moderate (1-2+) tricuspid valve insufficiency. Pulmonary artery systolic pressure is 47 mmHg. Aortic Valve Trisinus/trileaflet aortic valve. Mild (1+) aortic valve insufficiency. Pulmonic Valve Normal pulmonic valve. Great Vessels Calcified aortic root. The pulmonary artery is normal size. Normal inferior vena cava. Pericardium/Pleural No pericardial effusion. Medication Performed a rapid injection of agitated mix of 9 cc saline and 1cc air to assess for atrial septal defect. MMode/2D Measurements & Calculations LVIDd: 3.2 cm IVSd: 1.1 cm Ao root diam: 3.5 cm LVIDs: 1.8 cm LVPWd: 1.6 cm RVDd: 2.4 cm FS: 42.9 % LAV(MOD-bp): 146.0 ml LVAd ap4: 14.2 cm2 SV(MOD-sp4): 24.2 ml LAV(MOD-bp) Indexed: 85.6 ml/m2 EDV(MOD-sp4): 31.9 ml LAV(MOD-sp2): 185.7 ml EDV(sp4-el): 32.6 ml LAV(MOD-sp4): 108.6 ml LVAs ap4: 6.7 cm2 ESV(MOD-sp4): 7.7 ml ESV(sp4-el): 7.5 ml EF(MOD-sp4): 75.8 % EF(sp4-el): 76.8 % SV(sp4-el): 25.0 ml LA A4 area: 34.2 cm2 LA dimension(2D): 6.7 cm RA A4 area: 28.3 cm2 Doppler Measurements & Calculations MV E max manuel: 141.8 cm/sec Lat Peak E' Manuel: 10.8 cm/sec Med Peak E' Manuel: 3.7 cm/sec MV A max manuel: 28.0 cm/sec E/E' lat: 13.2 E/E' med: 37.9 MV E/A: 5.1 Ao V2 max: 108.9 cm/sec AI max manuel: 407.9 cm/sec LV V1 max: 80.0 cm/sec Ao max P.7 mmHg AI max P.6 mmHg LV V1 max P.6 mmHg Ao V2 mean: 71.5 cm/sec Ao mean P.3 mmHg AI dec slope: 380.2 cm/sec2 Ao V2 VTI: 23.8 cm AI P1/2t: 314.3 msec PA V2 max: 82.8 cm/sec TR max manuel: 328.0 cm/sec TR max P.0 mmHg Interpretation Summary Normal LV size. Moderate eccentric left ventricular hypertrophy. Left ventricular systolic function is normal. The estimated ejection fraction is 65 %. Stage 3 diastolic dysfunction. The left atrium is severely enlarged. Pacer lead with mobile echogenic structure noted likely small thrombus Mild (1+) aortic valve insufficiency. Pulmonary artery systolic pressure is 47 mmHg. Bubble contrast study negative for right to left interatrial shunt. Ordering Physician: Foreign Curry Referring Physician: Leonardo Wood Performed By: Evangelina Larkin, KEIRY, RVT
[2019-10-20 19:58] LABS: Erythrocyte Sedimentation Rate 4 mm/hr (0-30)
[2019-10-20] MEDS: Metoprolol(XL)Succ 50 MG Tablet PO (21:49)
[2019-10-20] MEDS: Magnesium Oxide 400 MG Tablet 1200 MG PO (21:49)
[2019-10-20] MEDS: Ascorbic Acid 500 MG Tablet 1000 MG PO (21:49)
[2019-10-21] VITALS (14 sets, daily range): BP systolic 116–143; BP diastolic 49–68; PULSE 69–94; RESP 16–18; TEMP 36.3–36.8; O2SAT 94–97; BMI 23.4
[2019-10-21] MEDS: Ipratropium/Albuterol Sulfate 3 ML AMPUL.NEB INHALATION ×2 (00:37→07:27)
[2019-10-21] MEDS: ALPRAZolam 0.25 MG Tablet PO ×2 (01:40→23:47)
[2019-10-21] MEDS: Levothyroxine 25 MCG TABLET PO (05:34)
[2019-10-21 06:34] LABS: International Normalized Ratio 1.8; Prothrombin Time (Protime)PT. 19.9 SECONDS (11.7-14.9)
[2019-10-21 06:53] LABS: Cholesterol 122 mg/dL (200); High Density Lipoprotein 44 mg/dL; Triglycerides 49 mg/dL; Very Low Density Lipoprotein 10 mg/dL (5-40)
[2019-10-21] MEDS: Budesonide Respules 0.5 MG/2 ML AMPUL.NEB. INHALATION (07:27)
[2019-10-21] MEDS: Aspirin 81 MG TAB.CHEW PO (08:04)
[2019-10-21] MEDS: Furosemide 20 MG Tablet PO (09:53)
[2019-10-21] MEDS: Magnesium Oxide 400 MG Tablet 1200 MG PO ×2 (09:53→21:38)
[2019-10-21] MEDS: Vitamin E 400 UNITS Capsule PO (09:53)
[2019-10-21] MEDS: Ascorbic Acid 500 MG Tablet 1000 MG PO ×2 (09:53→21:37)
[2019-10-21] MEDS: Enoxaparin 40 MG/0.4 ML Syringe SC (09:56)
--- NOTE | 2019-10-21 12:18 | PN_ITS ---
Reason for Visit: confusion Subjective: Tooth pain particularly after her silver cap came off her tooth. Intermittent headache. Vitals/I&O's: Vital Signs Temp Pulse Resp BP Pulse Ox 36.5 C L 70 18 130/51 H 94 10/21/19 09:30 10/21/19 09:30 10/21/19 09:30 10/21/19 09:30 10/21/19 09:30 Oxygen Delivery Method Room Air Weight: 63.957 kg Body Mass Index (BMI) 23.4 Finger Stick Blood Glucose 84 Intake and Output for Last 24 Hours 10/19/19 10/20/19 10/21/19 23:59 23:59 23:59 Intake Total 1300 / 1300 200 / 200 Balance 1300 / 1300 200 / 200 General: Alert, No apparent distress HEENT: Atraumatic, Normocephalic, - - no temporal tenderness. Oral: Moist Mucosa, No Gingival or Mucosal Lesions/ Ulcerations Neck: No Nodes, Thyroid Normal Size and Texture Lungs: Clear to auscultation, Normal air movement, No rhonchi, No wheeze Cardiovascular: Regular rate, Regular Rhythm, Normal S1, Normal S2 Abdomen: Bowel Sounds Present, Soft, Non Tender, Non-Distended Extremities: No edema, No Calf Tenderness Psych/Mental Status: Normal Affect, Appropriate Laboratory Results 10/20/19 13:02: WBC 8.0, RBC 4.93, Hgb 15.7 H, Hct 47.9 H, MCV 97.2, MCH 31.8, MCHC 32.8, RDW Std Deviation 47.4 H, RDW Coeff of Kasia 13.3, Plt Count 208, MPV 9.9, Immature Gran % (Auto) 0.400, Neut % (Auto) 64.4, Lymph % (Auto) 19.3, [place] % (Auto) 9.7, Eos % (Auto) 4.5, Baso % (Auto) 1.7 H, Absolute Neuts (auto) 5.2, Absolute Lymphs (auto) 1.55, Nucleated RBC % 0 10/20/19 13:02: Sodium 139, Potassium 3.7, Chloride 103, Carbon Dioxide 32.0, Anion Gap 4 L, BUN 25 H, Creatinine 0.99, Estim Creat Clear Calc 38.74, Est GFR (MDRD) Af Amer 68, Est GFR (MDRD) Non-Af 57 L, BUN/Creatinine Ratio 25.2 H, Glucose 79, Calcium 9.7, Total Bilirubin 1.20 H, AST 18, ALT 19, Alkaline Phosphatase 88, Troponin I 0.120 H, Total Protein 7.9, Albumin 4.1, Globulin 3.8, Albumin/Globulin Ratio 1.1 10/20/19 13:02: PT 16.6 H, INR 1.4 10/20/19 13:02: ESR 4 10/20/19 16:05: Urine Color Yellow, Urine Clarity Clear, Urine pH 6.0, Ur Specific [place] 1.015, Urine Protein Negative, Urine Glucose (UA) Normal, Urine Ketones 5 H, Urine Occult Blood Negative, Urine Nitrite Negative, Urine Bilirubin Negative, Urine Urobilinogen Normal, Ur Leukocyte Esterase Negative, Urine RBC 0-5 SEEN, Urine WBC 0 SEEN, Ur Squamous Epith Cells 0-5 SEEN, Urine Bacteria 0 SEEN, Urine Mucus 0 SEEN 10/20/19 16:10: Troponin I 0.114 H, TSH 2.82 10/20/19 18:50: Troponin I 0.105 H 10/21/19 05:10: Triglycerides 49, Cholesterol 122, LDL Cholesterol 68, VLDL Cholesterol 10, HDL Cholesterol 44 10/21/19 05:10: PT 19.9 H, INR 1.8 Current Medications Acetaminophen (Tylenol) 650 mg PO Q6H PRN PRN PRN Reason: Pain Score 1-10/T>100.7 Albuterol Sulfate (Ventolin Aerosols) 2.5 mg INHALATION Q4H PRN PRN PRN Reason: Bronchodialation Albuterol/Ipratropium (Duoneb) 3 ml INHALATION Q6HWA.RT [facility] Last Admin: 10/21/19 07:27 Dose: 3 ml Documented by: Alprazolam (Xanax) 0.25 mg PO Q6H PRN PRN PRN Reason: ANXIETY Last Admin: 10/21/19 01:40 Dose: 0.25 mg Documented by: Ascorbic Acid (Vitamin C) 1,000 mg PO BID [facility] Last Admin: 10/21/19 09:53 Dose: 1,000 mg Documented by: Aspirin (Aspirin, Baby) 81 mg PO DAILY@0800 [facility] Last Admin: 10/21/19 08:04 Dose: 81 mg Documented by: Budesonide (Pulmicort Aerosol) 0.5 mg INHALATION Q12H.RT [facility] Last Admin: 10/21/19 07:27 Dose: 0.5 mg Documented by: Cholecalciferol (Vitamin D (25mcg)) 1,000 unit PO DAILY [facility] Last Admin: 10/21/19 09:53 Dose: 1,000 unit Documented by: Enoxaparin Sodium (Lovenox) 40 mg SC DAILY [facility] Last Admin: 10/21/19 09:56 Dose: 40 mg Documented by: Furosemide (Lasix) 20 mg PO DAILY [facility] Last Admin: 10/21/19 09:53 Dose: 20 mg Documented by: Hydralazine HCl (Apresoline Iv) 5 mg IV Q30M PRN PRN Reason: to maintain BP goals Sodium Chloride () 250 mls @ 15 mls/hr IV .[id number] PRN PRN Reason: Saline Flush Sodium Chloride () 250 mls @ 15 mls/hr IV .[id number] PRN PRN Reason: Additional IVPB Infusion Labetalol HCl (Trandate) 10 - 20 mg IV Q10M PRN PRN PRN Reason: to Maintain BP Goals Levothyroxine Sodium (Synthroid) 25 mcg PO DAILY@0600 [facility] Last Admin: 10/21/19 05:34 Dose: 25 mcg Documented by: Magnesium Oxide (Mag-Ox 400) 1,200 mg PO BID [facility] Last Admin: 10/21/19 09:53 Dose: 1,200 mg Documented by: Meclizine HCl (Antivert) 25 mg PO TID PRN PRN PRN Reason: dizziness. vertigo. Metoprolol Succinate (Toprol Xl (Beta Ramin)) 50 mg PO QHS [facility] Last Admin: 10/20/19 21:49 Dose: 50 mg Documented by: Ondansetron HCl (Zofran) 4 mg IV Q8H PRN PRN PRN Reason: NAUSEA/VOMITING Pantoprazole Sodium (Protonix) 20 mg PO DAILY PRN PRN PRN Reason: HEARTBURN Potassium Chloride (K-Dur) 20 meq PO DAILY [facility] Last Admin: 10/21/19 09:53 Dose: 20 meq Documented by: Sodium Chloride () 10 - 40 ml IV UD PRN PRN Reason: SALINE FLUSH Vitamin E (Vitamin E) 400 units PO DAILY [facility] Last Admin: 10/21/19 09:53 Dose: 400 units Documented by: Warfarin Sodium (Jantoven) 2 mg PO [place]@1700 JOON Warfarin Sodium (Jantoven) 3 mg PO MoTuWeThFrSa@1700 JOON Last Admin: 10/20/19 19:58 Dose: 3 mg Documented by: STROKE Vital Signs/Narrative: Vital Signs Temp Pulse Resp BP Pulse Ox 10/21/19 09:30 36.5 C L 70 18 130/51 H 94 Medical Necessity - Tobacco Use Smoking Status: Light Smoker (<10/day) Tobacco Use: Cigarettes Assessment/Plan All Active Problems GERD (gastroesophageal reflux disease) (Acute) Vertigo (Acute) 1. Headache: * suspect atypical migraine given its waxing and waning status * ESR 4, therefore ruling out giant cell arteritis. * No further imaging at this time as patient has pacemaker and MRI is excluded. Patient's pacemaker was placed in 1999 and so would not be MRI compatible. * schedule acetaminophen 1g TID * no NSAIDs as she is on warfarin. 2. Confusion: * This is subjective. * etiology includes migraine v CVA. Other possibilities could be just some low- grade vertigo as patient does have a history of this and has been hospitalized for that in 2017. Could also be related with polypharmacy and alcohol consumption. Patient states that she did drink 2 drinks yesterday and she is also on lorazepam. Possible that the combination of these medications could have led to some of this confusion as well. I would not discontinue the lorazepam as I do not wish to precipitate any current withdrawal symptoms though she does take a low-dose. * Patient stated that she was not able to operate the remote control and stated that when I talked about an echocardiogram with her that she did not understand what that meant. Etiology is unclear but feel that we should evaluate the patient for stroke. The work-up will be limited as patient is unable to have an MRI. * Check an echocardiogram, neurology checks and bedside swallow evaluation. * Will continue with aspirin. Patient did receive aspirin in the emergency room. * After the rest of the neurology work-up has been completed, consider SOC tele- neurology consults unless another clear indication is identified for her co nfusion. 3. Elevated troponins: * Patient is asymptomatic. * Which is continuous likely troponins and check an echocardiogram. Patient will be on aspirin. Will hold off on cardiology evaluation at this time. 4. History of A. fib: Patient has a pacemaker and is on warfarin. 5. VTE prophylaxis: Moderate risk. Patient's INR is subtherapeutic so we will patient on VTE prophylactic dosing of enoxaparin. If patient has signs or worsening troponin elevations then consider full anticoagulation until her INR is therapeutic. Inpatient E&M: 13525 Subs Hosp L2
[2019-10-21] MEDS: Acetaminophen 500 MG Tablet 1000 MG PO ×2 (12:58→21:37)
[2019-10-21] MEDS: Jantoven 2 MG Tablet PO (17:26)
[2019-10-21] MEDS: Metoprolol(XL)Succ 50 MG Tablet PO (21:38)
[2019-10-22] VITALS (15 sets, daily range): BP systolic 124–195; BP diastolic 45–75; PULSE 70–88; RESP 10–32; TEMP 36.4–36.8; O2SAT 91–98; BMI 23.4
[2019-10-22] MEDS: Ipratropium/Albuterol Sulfate 3 ML AMPUL.NEB INHALATION (05:25)
[2019-10-22] MEDS: Budesonide Respules 0.5 MG/2 ML AMPUL.NEB. INHALATION (05:25)
[2019-10-22] MEDS: Levothyroxine 25 MCG TABLET PO (05:33)
[2019-10-22] MEDS: Acetaminophen 500 MG Tablet 1000 MG PO ×2 (05:33→13:10)
[2019-10-22 06:09] LABS: International Normalized Ratio 2.3; Prothrombin Time (Protime)PT. 24.6 SECONDS (11.7-14.9)
[2019-10-22] MEDS: Aspirin 81 MG TAB.CHEW PO (07:21)
[2019-10-22] MEDS: Furosemide 20 MG Tablet PO (09:05)
[2019-10-22] MEDS: Magnesium Oxide 400 MG Tablet 1200 MG PO (09:05)
[2019-10-22] MEDS: Enoxaparin 40 MG/0.4 ML Syringe SC (09:05)
[2019-10-22] MEDS: Ascorbic Acid 500 MG Tablet 1000 MG PO (09:06)
[2019-10-22] MEDS: Vitamin E 400 UNITS Capsule PO (09:06)
--- NOTE | 2019-10-22 11:37 | TELEMED_ITS ---
SOC Telemed has confirmed receipt of a request for visit. This document confirms receipt of the order initiating the consult. To find the results of the consultation, please view the patient's reports for the scanned Telemed Consult.
--- NOTE | 2019-10-22 12:05 | CASEMGMT ---
TREVON LEGGETT assessment: Face to Face with patient for initial transition planning/care coordination assessment. RN OLEKSANDR introduced self and role at [facility], pt voices understanding and consents to assessment at this time. Pt is sitting up in chair in no distress at this time. Pt is A/Ox4 at this time is slow to answer questions and struggles with finding the correct words at times. Pt states that her niece, Chantell Robert, is her HPOA but cannot remember her number at this time and advises this RN CM to call her [id number], Margaret Youngblood, to obtain contact information for Chantell at this time. Care providers, pharmacy, and demographics verified/updated at this time. Presentation: Dizziness and 'doesn't feel right', started at 1030, pain in jaw, fatigue and heaviness all over Admitting dx: Confusion, FARIA PCP: Israel DAVE Specialists: [facility] cardiology Preferred Pharmacy: [facility] Insurance: MCR A/B, MMO Prescription Benefit: Yes Living Will/HPOA: Pt states she has a LW/HPOA and that her niece, Chantell Robert, is HPOA. Pt is aware that these are not on file at [facility] at this time. Contacted Margaret WALKER, per pt request to obtain contact info for HPOA and info updated at this time. LNOK: Chantell Robert, callieece/HPOA; Margaret YoungbloodDENISE Living Arrangements: Pt states lives alone in 1 story home and states no concerns at home at this time. Pt states is independent with ADL's. Transportation: Pt states drives self and states no transportation concerns at this time. DME/HHC: Pt states no current DME or need for any at this time. Pt states no hx of HHC or SNF in the past. Pt does state concerns with going home as she is not sure what is going on with her at this time. Pt states is retired. Pt states does smoke a pack cigarettes daily and drinks 'a couple vodka' drinks daily. Pt states no further concerns/needs at this time. CM to follow for any further discharge planning/needs. Advised pt to ask for CM if any further questions/concerns/needs arise, voices understanding. Pt Goal: Home Plan: Home, pending neuro c/s, further testing, PT/OT recommendations. [place] TREVON LEGGETT
--- NOTE | 2019-10-22 13:46 | CT_ITS ---
STUDY: CTA HEAD AND NECK WITH CONTRAST REASON FOR EXAM: Female, 83 years old. LT SIDED FARIA, GENERALIZED CONFUSION, HX-A-FIB, PACEMAKER, ON COUMADIN RADIATION DOSAGE (If Supplied By Facility): CTDIvol = ( 32.01 ) mGy, DLP = ( 1277.36 ) mGycm TECHNIQUE: CT angiography was performed with a multi-detector CT scanner. Data acquisition was obtained from the skull base through the vertex following intravenous administration of 100ML ISOVUE 370. MIP images were reconstructed from the axial data set. Post-processing of the angiographic images was performed, with multiplanar reformation and 3D reconstruction. Individualized dose optimization techniques were used for this CT. COMPARISON: No relevant priors. FINDINGS: Normal bilateral petrous carotid arteries. Normal right cavernous carotid artery with a normal supraclinoid bifurcation. Normal left cavernous carotid artery with a normal supraclinoid bifurcation. Normal right A1 segments of the anterior cerebral artery. Normal left A1 segments of the anterior cerebral artery. Normal intact anterior communicating artery (ACOM). Normal bilateral A2 segments of the anterior cerebral arteries. Normal right M1 and M2 segments of the middle cerebral arteries, with a normal M1 bifurcation. Normal left M1 and M2 segments of the middle cerebral arteries, with a normal M1 bifurcation. Normal right posterior communicating artery (PCOM). Normal left posterior communicating artery (PCOM). Normal bilateral vertebral arteries. Normal basilar artery with a normal basilar bifurcation. The visualized bilateral superior cerebellar (SCA) arteries are normal. Normal bilateral P1, P2 and visualized P3 segments of the posterior cerebral arteries. There is no demonstrated aneurysm of the [place] of [place]. AORTIC ARCH: There is atherosclerotic calcific plaque formation of the aortic arch and great vessels arising from the aortic arch, without a hemodynamically significant stenosis. There is a normal origin of the brachiocephalic, left common carotid, and left subclavian arteries. Atherosclerotic calcific plaques at the origin of the left common carotid artery as well as the right brachiocephalic artery. RIGHT CAROTID ARTERIES: Normal right common carotid artery (CCA). Normal right common carotid bulb. There is mild atherosclerotic plaque formation of the origin of the right internal carotid artery with less than 50% cross sectional diameter stenosis. Normal visualized cervical portion of the right internal carotid artery. Normal origin of the right external carotid artery (ECA). LEFT CAROTID ARTERIES: Normal left common carotid artery (CCA). There is moderate atherosclerotic plaque formation with moderate narrowing of the carotid bulb. There is extensive atherosclerotic plaque formation of the origin of the left internal carotid artery with an estimated stenosis of greater than 70%. There is occlusion of the left internal carotid artery just distal to its origin. Thrombus is seen within the cervical aspect of the left internal carotid artery extending into the cavernous portion of the left internal carotid artery. Intracerebral branches of the left internal carotid artery supplied from the right internal carotid artery. Normal origin of the left external carotid artery (ECA). VERTEBRAL ARTERIES: Normal bilateral vertebral arteries. 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 Branches of the left internal carotid artery within the brain are supplied from the right internal carotid artery. Electronically Signed: Tato Montez, at 14:46 EDT , Service support ,
--- NOTE | 2019-10-22 13:48 | PN_ITS ---
Reason for Visit: Generalized confusion, headache Objective: Patient was seen and examined in the morning. Patient answer questions appropriately. Does not seem acutely confused although she takes a longer time to respond to a question, sometimes she says I do not remember. I talked to patient's [id number] present in the room and she states she is increasingly forgetful and pauses to remember for 3 to 4-month. Seen and examined General: Alert, Oriented x3, Cooperative, slow to respond HEENT: Atraumatic, PERRLA, EOMI, Normocephalic Oral: No Gingival or Mucosal Lesions/ Ulcerations Neck: Supple, No JVD, Negative Carotid Bruits Lungs: Air entry diminished in bilateral lung bases. No crepitation/rhonchi Cardiovascular: Regular rate, Regular Rhythm, Normal S1, Normal S2, No murmurs. 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 Pacemaker present. Abdomen: Bowel Sounds Present, Soft, Non Tender, Non-Distended : No renal angle tenderness. No suprapubic tenderness. Extremities: No edema, Capillary Refill Less than 3 Seconds Skin: No rashes, No breakdown Musculoskeletal: No Tenderness to Palpation of Joints or Extremities Neurological: Subtle left-sided droop, Deep Tendon Reflexes 2+/4 and Symmetrical, Neuro grossly intact. Muscle strength 5/5 at major joints. Psych/Mental Status: Normal Affect, Appropriate. Vitals/I&O's: Vital Signs Temp Pulse Resp BP Pulse Ox 97.6 F L 76 16 129/46 H 95 10/22/19 12:41 10/22/19 12:41 10/22/19 12:41 10/22/19 12:41 10/22/19 12:41 Oxygen Delivery Method Room Air Weight: 141 lb 0.017 oz Body Mass Index (BMI) 23.4 Finger Stick Blood Glucose 84 Intake and Output for Last 24 Hours 10/20/19 10/21/19 10/22/19 23:59 23:59 23:59 Intake Total 1300 / 1300 880 / 880 500 / 500 Output Total Balance 1300 / 1300 880 / 880 499 / 499 Laboratory Results 10/22/19 05:42: PT 24.6 H, INR 2.3 Current Medications Acetaminophen (Tylenol) 1,000 mg PO Q8 JOON Last Admin: 10/22/19 13:10 Dose: 1,000 mg Documented by: Albuterol Sulfate (Ventolin Aerosols) 2.5 mg INHALATION Q4H PRN PRN PRN Reason: Bronchodialation Albuterol/Ipratropium (Duoneb) 3 ml INHALATION Q6HWA.RT [facility] Last Admin: 10/22/19 05:25 Dose: 3 ml Documented by: Alprazolam (Xanax) 0.25 mg PO Q6H PRN PRN PRN Reason: ANXIETY Last Admin: 10/21/19 23:47 Dose: 0.25 mg Documented by: Ascorbic Acid (Vitamin C) 1,000 mg PO BID [facility] Last Admin: 10/22/19 09:06 Dose: 1,000 mg Documented by: Aspirin (Aspirin, Baby) 81 mg PO DAILY@0800 [facility] Last Admin: 10/22/19 07:21 Dose: 81 mg Documented by: Atorvastatin Calcium (Lipitor) 40 mg PO QHS JOON Budesonide (Pulmicort Aerosol) 0.5 mg INHALATION Q12H.RT [facility] Last Admin: 10/22/19 05:25 Dose: 0.5 mg Documented by: Cholecalciferol (Vitamin D (25mcg)) 1,000 unit PO DAILY [facility] Last Admin: 10/22/19 09:06 Dose: 1,000 unit Documented by: Enoxaparin Sodium (Lovenox) 40 mg SC DAILY [facility] Last Admin: 10/22/19 09:05 Dose: 40 mg Documented by: Furosemide (Lasix) 20 mg PO DAILY [facility] Last Admin: 10/22/19 09:05 Dose: 20 mg Documented by: Hydralazine HCl (Apresoline Iv) 5 mg IV Q30M PRN PRN Reason: to maintain BP goals Sodium Chloride () 250 mls @ 15 mls/hr IV .[id number] PRN PRN Reason: Saline Flush Sodium Chloride () 250 mls @ 15 mls/hr IV .[id number] PRN PRN Reason: Additional IVPB Infusion Sodium Chloride () 1,000 mls @ 50 mls/hr IV .Q20H JOON Iopamidol (Contrast Allergy Check) 0 ml IV X1 JOON Labetalol HCl (Trandate) 10 - 20 mg IV Q10M PRN PRN PRN Reason: to Maintain BP Goals Levothyroxine Sodium (Synthroid) 25 mcg PO DAILY@0600 [facility] Last Admin: 10/22/19 05:33 Dose: 25 mcg Documented by: Magnesium Oxide (Mag-Ox 400) 1,200 mg PO BID [facility] Last Admin: 10/22/19 09:05 Dose: 1,200 mg Documented by: Meclizine HCl (Antivert) 25 mg PO TID PRN PRN PRN Reason: dizziness. vertigo. Metoprolol Succinate (Toprol Xl (Beta Ramin)) 50 mg PO QHS [facility] Last Admin: 10/21/19 21:38 Dose: 50 mg Documented by: Ondansetron HCl (Zofran) 4 mg IV Q8H PRN PRN PRN Reason: NAUSEA/VOMITING Pantoprazole Sodium (Protonix) 20 mg PO DAILY PRN PRN PRN Reason: HEARTBURN Potassium Chloride (K-Dur) 20 meq PO DAILY [facility] Last Admin: 10/22/19 09:05 Dose: 20 meq Documented by: Sodium Chloride () 10 - 40 ml IV UD PRN PRN Reason: SALINE FLUSH Vitamin E (Vitamin E) 400 units PO DAILY [facility] Last Admin: 10/22/19 09:06 Dose: 400 units Documented by: Warfarin Sodium (Jantoven) 2 mg PO [place]@1700 [facility] Last Admin: 10/21/19 17:26 Dose: 2 mg Documented by: Warfarin Sodium (Jantoven) 3 mg PO MoTuWeThFrSa@1700 [facility] Last Admin: 10/20/19 19:58 Dose: 3 mg Documented by: STROKE Vital Signs/Narrative: Vital Signs Temp Pulse Resp BP Pulse Ox 10/22/19 12:41 97.6 F L 76 16 129/46 H 95 Medical Necessity - Tobacco Use Smoking Status: Light Smoker (<10/day) Tobacco Use: Cigarettes Assessment/Plan All Active Problems GERD (gastroesophageal reflux disease) (Acute) Vertigo (Acute) Please see discharge summary for details assessment and plan In the morning, I talked to the [facility] neurologist and he advised CT angiogram of head and neck. ESR normal therefore giant cell arteritis normal. She has remote history of migraine headache, last attack was about 25 years ago.
[2019-10-22] MEDS: 0.9% Normal Saline 1,000 ML 50 ML IV (14:30)
[2019-10-22] MEDS: MethylPREDNISolone 125 MG/2 ML Vial 60 MG IV (14:45)
[2019-10-22] MEDS: DiphenhydrAMINE 50 MG/ML Syringe 12.5 MG IV (14:45)
[2019-10-22] MEDS: 0.9% Saline Lock 10 ML Syringe IV (14:46)
--- NOTE | 2019-10-22 14:48 | NURSING ---
Pt returned from CT drowsy and lethargic. 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 Nuno. Blood work obtained. Stat meds given incase of allergic reaction. STAT TELE consult placed.
[2019-10-22 14:54] LABS: Absolute Lymphocyte Count 1.16 X10^3/uL (0.83-4.51); Basophil# 0.13 X10^3/uL; Basophil% 1.8 % (0-1); Eosinophil# 0.37 X10^3/uL; Hematocrit 42.8 % (37-47); Lymphocyte # 1.16 X10^3/ul (4.0); Lymphocyte % 15.8 % (19-41); Mean Corp Hgb Conc 32.7 g/dL (32-36); Mean Corpuscular Hgb 31.9 pg (27.0-32.0); Mean Corpuscular Volume 97.5 fL (81-99); Mean Platelet Vol. 10.1 fl (6.2-12.0); Monocyte# 0.72 X10^3/uL; Monocyte% 9.8 % (0-10); NRBC Flagged by Analyzer 0 % (0-5); Neutrophil # 4.95 X10^3/uL (2.7-7.7); Neutrophil % 67.2 % (47-70); Platelet Count 184 K/mm3 (150-450); RBC Distribution Width CV 13.2 % (11.6-14.6); RBC Distribution Width SD 47.6 fl (35.1-43.9); Red Blood Count 4.39 M/mm3 (4.2-5.4); White Blood Count 7.4 K/mm3 (4.4-11.0)
[2019-10-22 15:13] LABS: Phosphorus 2.9 mg/dL (2.5-4.9)
[2019-10-22 15:22] LABS: AST(SGOT) 13 U/L (15-37); Alanine Aminotransfer ALT/SGPT 15 U/L (13-56); Albumin, Serum 3.2 g/dL (3.2-5.0); Alkaline Phosphatase 75 U/L (45-117); Anion Gap 6 (5-15); BUN 18 mg/dL (7-18); BUN/Creat Ratio 21.4 RATIO (10-20); Chloride 107 mmol/L (98-107); Creatinine, Serum 0.84 mg/dL (0.55-1.02); EST Glomerular Filtration Rate 69 mL/min (>60); Est Glom Filt Rate - Afr Amer 83 mL/min (>60); Estimated Creatinine Clearance 45.66 ml/min; Globulin 3.3 g/dL (2.2-4.2); Glucose 96 mg/dL (74-106); Magnesium 2.1 mg/dL (1.6-2.6); Protein, Total 6.5 g/dL (6.4-8.2); Sodium Level 140 mmol/L (136-145)
--- NOTE | 2019-10-22 15:33 | DS.PCM_ITS ---
Discharge Date and Diagnosis Date of Admission: 10/20/19 Date of Discharge: 10/22/19 - Primary Discharge Diagnosis Acute Problems: Acute ischemic stroke, most likely left MCA stroke Generalized confusion, multifactorial probably from a stroke, metabolic/toxic encephalopathy. Bilateral headache, exact etiology unclear - Secondary Discharge Diagnosis Chronic Problems: Chronic Problems Tobacco abuse (Chronic) Hypothyroidism (Chronic) A-fib (Chronic) Hospital Course and Treatment Imaging Results: 10/22/19 13:46 CTA Head AND Neck W/ Contrast [CT] Routine Operations: None Summary of Care Provided: The patient is a 83 year old F with history of chronic smoking, paroxysmal A. fib, possible COPD was admitted with left-sided headache along with generalized confusion. She had remote history of migraine headache. [] 1. Acute left-sided ischemic stroke and subacute headache: Headache is fluctuating. In the morning it was 2-3 x 10 intensity. When [facility] neurology saw she said 8/10 intensity. No vertigo. No change in vision or diplopia in the morning. No recent head injury. ESR normal. TSH normal. [facility] neurology recommended CT of head and neck. There is no focal deficit on exam in the morning to suggest acute stroke therefore initial assessment was complicated migraine versus toxic metabolic encephalopathy. When she came from CTA of head and neck, she was found profoundly sleepy, moribund, mumbled speech, non- intelligible with neglect on the right side. NIH stroke scale 22?25. Stroke alert was called immediately. CTA head and neck reported occlusion of left ICA just distal to its origin with thrombus seen in cavernous portion of left ICA. Branches of left ICA within brain are supplied from the right ICA. Last known well was 1330 before she went for CT head patient not candidate for TPA because of INR more than 1.7. INR currently 2.3. Patient on aspirin, Coumadin and high intensity statin. 2D echo was done and suggestive of chronic HFpEF with moderate pulmonary hypertension. quality assurance monitor shows paced rhythm and sometimes sinus rhythm Interpretation Summary Normal LV size. Moderate eccentric left ventricular hypertrophy. Left ventricular systolic function is normal. The estimated ejection fraction is 65 %. Stage 3 diastolic dysfunction. The left atrium is severely enlarged. Pacer lead with mobile echogenic structure noted likely small thrombus Mild (1+) aortic valve insufficiency. Pulmonary artery systolic pressure is 47 mmHg. Bubble contrast study negative for right to left interatrial shunt. I talked to Dr. Karina Terrell in [facility] and recommended patient not candidate for TPA because of INR 2.3. Patient accepted for transfer to [facility], level 1. In the interim time, patient was transferred to ICU from where she was life flighted to [facility]. I talked to Chantell Robert, phone #[phone] and explained the hospital course and transfer to [facility]. 2. Generalized confusion secondary to ischemic stroke and metabolic encephalopathy: Fluctuating level: Initially patient was confused but it improved and then after CT angiogram patient was moribund, stupor, not opening eyes spontaneously. Patient did not have vertigo. There is possibility of headache secondary to complicated migraine and patient was admitted. Mother also possibility of withdrawal symptoms as patient drinks heavily, 4-5 drinks of vodka almost every day. Labs were reviewed. B12 and folic acid normal. Ammonia level normal. 3. Elevated troponins: Mild elevated and indeterminate range. Patient denies chest pain. 2D echo does not show wall motion abnormality. Patient denies history of coronary artery disease. No history of coronary stent. 4. Paroxysmal A. fib : Patient has a pacemaker and is on warfarin. 5. VTE prophylaxis: Moderate risk. INR 2.3. Therapeutic Clinical Impression(s) from Imaging Studies Brain CT 10/20/19 13:05 IMPRESSION: Chronic involutional changes of the brain. No acute intracranial process. Chest X-Ray 10/20/19 13:06 IMPRESSION: Enlargement of the cardiac silhouette. No active pulmonary disease. 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 Branches of the left internal carotid artery within the brain are supplied from the right internal carotid artery. Objective: Seen and examined in afternoon after patient came from CT angiogram She was very confused, moribund, sleepy, not waking up. Does not follow command. Hardly opens eyes. This was profound change what I saw in the morning. Physical exam Neuro exam: NIH stroke scale 22-25. Patient speech was unintelligible, hardly audible, mumbles. Right-sided weak, falls immediately. Left upper extremity is able to keep up for 10 seconds. Left lower extremity one-point. Visual threat present on left side visual field. Rest of physical exam remains same - Physical Exam Vitals/I&O's: Vital Signs Temp Pulse Resp BP Pulse Ox 98.3 F 82 20 H 150/60 H 93 10/22/19 15:21 10/22/19 15:21 10/22/19 15:21 10/22/19 15:21 10/22/19 15:21 Oxygen Delivery Method Room Air Weight: 141 lb 0.017 oz Body Mass Index (BMI) 23.4 Finger Stick Blood Glucose 101 Intake and Output for Last 24 Hours 10/20/19 10/21/19 10/22/19 23:59 23:59 23:59 Intake Total 1300 / 1300 880 / 880 500 / 500 Output Total Balance 1300 / 1300 880 / 880 499 / 499 Laboratory Results 10/22/19 05:42: PT 24.6 H, INR 2.3 10/22/19 14:43: Sodium 140, Potassium 4.0, Chloride 107, Carbon Dioxide 27.0, Anion Gap 6, BUN 18, Creatinine 0.84, Estim Creat Clear Calc 45.66, Est GFR (MDRD) Af Amer 83, Est GFR (MDRD) Non-Af 69, BUN/Creatinine Ratio 21.4 H, Glucose 96, Calcium 8.0 L, Magnesium 2.1, Total Bilirubin 0.60, AST 13 L, ALT 15 , Alkaline Phosphatase 75, Total Protein 6.5, Albumin 3.2, Globulin 3.3, Albumin/Globulin Ratio 1.0, Folate 11.40 10/22/19 14:43: Vitamin B12 Pending 10/22/19 14:43: Ammonia 32.0 10/22/19 14:43: WBC 7.4, RBC 4.39, Hgb 14.0, Hct 42.8, MCV 97.5, MCH 31.9, MCHC 32.7, RDW Std Deviation 47.6 H, RDW Coeff of Kasia 13.2, Plt Count 184, MPV 10.1, Immature Gran % (Auto) 0.400, Neut % (Auto) 67.2, Lymph % (Auto) 15.8 L, [place] % (Auto) 9.8, Eos % (Auto) 5.0, Baso % (Auto) 1.8 H, Absolute Neuts (auto) 5.0, Absolute Lymphs (auto) 1.16, Nucleated RBC % 0 10/22/19 14:43: Phosphorus 2.9, Troponin I 0.074 H Current Medications Acetaminophen (Tylenol) 1,000 mg PO Q8 [facility] Last Admin: 10/22/19 13:10 Dose: 1,000 mg Documented by: Albuterol Sulfate (Ventolin Aerosols) 2.5 mg INHALATION Q4H PRN PRN PRN Reason: Bronchodialation Albuterol/Ipratropium (Duoneb) 3 ml INHALATION Q6HWA.RT [facility] Last Admin: 10/22/19 05:25 Dose: 3 ml Documented by: Alprazolam (Xanax) 0.25 mg PO Q6H PRN PRN PRN Reason: ANXIETY Last Admin: 10/21/19 23:47 Dose: 0.25 mg Documented by: Ascorbic Acid (Vitamin C) 1,000 mg PO BID [facility] Last Admin: 10/22/19 09:06 Dose: 1,000 mg Documented by: Aspirin (Aspirin, Baby) 81 mg PO DAILY@0800 [facility] Last Admin: 10/22/19 07:21 Dose: 81 mg Documented by: Atorvastatin Calcium (Lipitor) 80 mg PO QHS [facility] Budesonide (Pulmicort Aerosol) 0.5 mg INHALATION Q12H.RT [facility] Last Admin: 10/22/19 05:25 Dose: 0.5 mg Documented by: Cholecalciferol (Vitamin D (25mcg)) 1,000 unit PO DAILY [facility] Last Admin: 10/22/19 09:06 Dose: 1,000 unit Documented by: Enoxaparin Sodium (Lovenox) 40 mg SC DAILY [facility] Last Admin: 10/22/19 09:05 Dose: 40 mg Documented by: Furosemide (Lasix) 20 mg PO DAILY [facility] Last Admin: 10/22/19 09:05 Dose: 20 mg Documented by: Hydralazine HCl (Apresoline Iv) 5 mg IV Q30M PRN PRN Reason: to maintain BP goals Sodium Chloride () 250 mls @ 15 mls/hr IV .[id number] PRN PRN Reason: Saline Flush Sodium Chloride () 250 mls @ 15 mls/hr IV .[id number] PRN PRN Reason: Additional IVPB Infusion Sodium Chloride () 1,000 mls @ 100 mls/hr IV .Q10H [facility] Last Admin: 08/10/20 14:30 Dose: 50 mls/hr Documented by: Labetalol HCl (Trandate) 10 - 20 mg IV Q10M PRN PRN PRN Reason: to Maintain BP Goals Levothyroxine Sodium (Synthroid) 25 mcg PO DAILY@0600 [facility] Last Admin: 10/22/19 05:33 Dose: 25 mcg Documented by: Magnesium Oxide (Mag-Ox 400) 1,200 mg PO BID [facility] Last Admin: 10/22/19 09:05 Dose: 1,200 mg Documented by: Meclizine HCl (Antivert) 25 mg PO TID PRN PRN PRN Reason: dizziness. vertigo. Metoprolol Succinate (Toprol Xl (Beta Ramin)) 50 mg PO QHS [facility] Last Admin: 10/21/19 21:38 Dose: 50 mg Documented by: Ondansetron HCl (Zofran) 4 mg IV Q8H PRN PRN PRN Reason: NAUSEA/VOMITING Pantoprazole Sodium (Protonix) 20 mg PO DAILY PRN PRN PRN Reason: HEARTBURN Potassium Chloride (K-Dur) 20 meq PO DAILY [facility] Last Admin: 10/22/19 09:05 Dose: 20 meq Documented by: Sodium Chloride () 10 - 40 ml IV UD PRN PRN Reason: SALINE FLUSH Last Admin: 10/22/19 14:46 Dose: 10 ml Documented by: Vitamin E (Vitamin E) 400 units PO DAILY [facility] Last Admin: 10/22/19 09:06 Dose: 400 units Documented by: Warfarin Sodium (Jantoven) 2 mg PO [place]@1700 [facility] Last Admin: 10/21/19 17:26 Dose: 2 mg Documented by: Warfarin Sodium (Jantoven) 3 mg PO MoTuWeThFrSa@1700 [facility] Last Admin: 10/20/19 19:58 Dose: 3 mg Documented by: Home Medications: Medications to take at Discharge Ascorbic Acid [Vitamin C] 1,000 mg PO BID 03/31/15 Cholecalciferol (VIT D3) [Vitamin D3] 1,000 unit PO DAILY 03/31/15 Furosemide [Lasix] 20 mg PO DAILY 03/31/15 Levothyroxine [Synthroid] 25 mcg PO DAILY 03/31/15 Metoprolol(XL)Succ [Toprol Xl (Beta Ramin)] 50 mg PO QHS 03/31/15 Potassium Chloride [K-Dur] 20 meq PO DAILY 03/31/15 Ubidecarenone [Q-Sorb Co Q-10] 100 mg PO DAILY 03/31/15 Vitamin E 400 units PO DAILY 03/31/15 Warfarin [Coumadin] 3 mg PO ESCOBAR 03/31/15 ALPRAZolam [Xanax] 0.25 mg PO Q6H PRN PRN 07/29/16 Albuterol IH (ProAir) [Proair Hfa] 1 - 2 puff INHALATION Q6H PRN PRN 07/29/16 Magnesium Gluconate 1,500 mg PO BID 07/29/16 Warfarin [Coumadin] 2 mg PO [id number] 07/29/16 Acetaminophen [Tylenol Tablet] 650 mg PO Q6H PRN PRN #0 tablet 07/30/16 Meclizine HCl [Antivert] 25 mg PO TID PRN PRN #20 tablet 07/30/16 Doxycycline Hyclate 100 mg PO BID 10/20/19 Fluticasone/Umeclidin/Vilanter [Trelegy Ellipta 100-62.5-25] 1 ea IH DAILY 10/20/19 Omeprazole [Prilosec] 20 mg PO DAILY PRN 10/20/19 Primary Care Physician: Leonardo Wood III, MD [Primary Care Provider] - Medical Necessity - Tobacco Use Smoking Status: Light Smoker (<10/day) Tobacco Use: Cigarettes Meaningful Use Info Meaningful Use Diagnoses (Choose all that apply): Ischemic CVA - CVA Therapy Assessed for PT,OT and/or ST?: Yes - Ischemic Stroke Antithrombotic order at d/c?: Yes Dx of Atrial fib/flutter?: Yes Anticoagulant at discharge?: Yes Statins at discharge?: Yes Primary Dx Acute Ischemic CVA?: Yes IV tPA ordered during stay?: No Reason IV t-PA not ordered: Treatment not Indicated - INR 2.3 Inpatient E&M: [id number] Disch Hosp
--- NOTE | 2019-10-22 15:35 | NURSING ---
Addendum entered by Kristie Ybarra 10/22/19 15:42: Transferred for increased NIH and VS monitoring needs until transfer to [facility]. Original Note: Pt transferred to ICU for active stroke. [facility] ETA 25 min
[2019-10-22 15:39] LABS: Vitamin B12 710 pg/mL (211-911)
[2019-10-22 15:56] LABS: Bedside Glucose 101 mg/dL (70-110)
--- NOTE | 2019-10-22 16:05 | NURSING ---
Report given to Zane LESTER [facility] at bedside. [place] notified of patients departure and approx. flight time.
== END 2019-10-22 16:10 | disposition short-term general hospital (02) | DRG 64 ==
LOC: ED 18:14 → PCU 18:22 → ICU 10-22 15:30
PROVIDERS: Emergency Provider Student in an Organized Health Care Education/Training Program; PCP Family Medicine; Visit Provider Internal Medicine
DX: I63.512 Cerebral infarction due to unspecified occlusion or stenosis of left middle cerebral artery (principal); G92 Toxic encephalopathy; R41.4 Neurologic neglect syndrome; R29.810 Facial weakness; R47.81 Slurred speech; R40.4 Transient alteration of awareness; R51 Headache; E03.9 Hypothyroidism, unspecified; F17.210 Nicotine dependence, cigarettes, uncomplicated; I48.0 Paroxysmal atrial fibrillation; K08.89 Other specified disorders of teeth and supporting structures; K21.9 Gastro-esophageal reflux disease without esophagitis; R79.1 Abnormal coagulation profile; E78.5 Hyperlipidemia, unspecified; R29.722 NIHSS score 22; Z79.01 Long term (current) use of anticoagulants; Z79.890 Hormone replacement therapy; Z95.0 Presence of cardiac pacemaker; Z79.82 Long term (current) use of aspirin; Z79.899 Other long term (current) drug therapy; Z85.828 Personal history of other malignant neoplasm of skin
CPT/HCPCS: 36415; 70450; 70496; 70498; 71045; 80053; 80061; 81001; 82140; 82607; 82746; 82962; 83735; 84100; 84443; 84484; 85025; 85610; 85652; 93005; 93306; 94640; 94762; 97162; 97166; 97530; 97802; 99285; 99406; J7030; Q9967; A4216; J2405; J3490